=== PATIENT | female | born 1990 | race Caucasian/White ===

== ENCOUNTER → 2019-03-17 | Outpatient (CLI) | payer OTHER ==
--- NOTE | 2019-03-17 08:25 | US ---
EXAMINATION TYPE: US gallbladder DATE OF EXAM: 03/17/2019 COMPARISON: NONE CLINICAL HISTORY: K82.8 Other specified diseases of gallbladder. NPO, loose stool EXAM MEASUREMENTS: Liver Length: 14.8 cm Gallbladder Wall: 0.1 cm CBD: 0.4 cm Right Kidney: 9.7 x 4.4 x 4.3 cm Pancreas: wnl Liver: wnl Gallbladder: wnl Evidence for sonographic Haney's sign: neg CBD: wnl Right Kidney: No hydronephrosis or masses seen IMPRESSION: No sonographic evidence of cholelithiasis nor acute cholecystitis.
== END | disposition home or self-care (01) ==
LOC: RADUSWWP 06:59
PROVIDERS: ATTEND Surgery Plastic and Reconstructive Surgery
DX: R82.8 Abnormal findings on cytological and histological examination of urine (principal)
CPT/HCPCS: 76705

== ENCOUNTER 2019-04-01 08:01 | Day surgery (SDC) | payer OTHER ==
[2019-03-30 14:12] VITALS: BMI 24.5
--- NOTE | 2019-04-01 07:57 | P.GSHP ---
History of Present Illness H&P Date: 04/01/19 CHIEF COMPLAINT: GERD and change in bowel habits HISTORY OF PRESENT ILLNESS: The patient is a 29-year-old female who presents with gastroesophageal reflux disease and change in bowel habits Upper and lower endoscopy were offered for further evaluation and management. PAST MEDICAL HISTORY: Please see list. PAST SURGICAL HISTORY: Please see list. MEDICATIONS: Please see list. ALLERGIES: Please see list. SOCIAL HISTORY: No illicit drug use FAMILY HISTORY: No reports of Crohn disease or ulcerative colitis. REVIEW OF ORGAN SYSTEMS: CONSTITUTIONAL: No reports of fevers or chills. PHYSICAL EXAM: VITAL SIGNS: Stable GENERAL: Well-developed pleasant in no acute distress. HEENT: No scleral icterus. Extraocular movements grossly intact. Moist buccal mucosa. NECK: Supple without lymphadenopathy. CHEST: Unlabored respirations. Equal bilateral excursions. CARDIOVASCULAR: Regular rate and rhythm. Distal 2+ pulses. ABDOMEN: Soft, nondistended. MUSCULOSKELETAL: No clubbing, cyanosis, or edema. ASSESSMENT: 1. Gastroesophageal reflux disease 2. Change in bowel habits PLAN: 1. Recommend proceeding with an upper and lower endoscopy Past Medical History Past Medical History: GERD/Reflux Additional Past Medical History / Comment(s): intermittent bleeding with stools,freq diarrhea History of Any Multi-Drug Resistant Organisms: None Reported Additional Past Surgical History / Comment(s): upper and lower GI ([facility]) Past Anesthesia/Blood Transfusion Reactions: No Reported Reaction Smoking Status: Never smoker - Past Family History Mother Family Medical History: No Reported History Medications and Allergies Home Medications Medication Instructions Recorded Confirmed Type Dextroamphetamine/Amphetamine 25 mg PO QAM 03/30/19 03/30/19 History [Adderall Xr] Ibuprofen 600 - 800 mg PO Q8H PRN 03/30/19 03/30/19 History Medroxyprogesterone Acetate 150 mg IM ONCE 03/30/19 03/30/19 History [Depo-Provera] Omeprazole 40 mg PO DAILY 03/30/19 03/30/19 History SUMAtriptan SUCCINATE [Imitrex] 100 mg PO DAILY PRN 03/30/19 03/30/19 History Sertraline [Zoloft] 100 mg PO QAM 03/30/19 03/30/19 History Allergies Allergy/AdvReac Type Severity Reaction Status Date / Time No Known Allergies Allergy Verified 03/30/19 14:03
[~2019-04-01 08:01] MED LIST: LACTATED RINGERS 1,000 ML IV SCH; LIDOCAINE 1% 20 ML VIAL (10MG/ML) FOR IV START INTRADERMA PRN
[2019-04-01 08:25] VITALS: RESP 18; TEMP 98.2
[2019-04-01] MEDS ORDERED: PROPOFOL 10 MG/ML 20 ML VIAL IV ONE (08:49)
[2019-04-01] MEDS ORDERED: LIDOCAINE 1% INJ 10MG/ML (20 ML MDV) ONE (08:49)
--- NOTE | 2019-04-01 09:03 | P.PCN ---
Date of Procedure: 04/01/19 Description of Procedure: PREOPERATIVE DIAGNOSIS: Gastroesophageal reflux disease. POSTOPERATIVE DIAGNOSIS: Erosive esophagitis Gastroesophageal reflux disease Diaphragmatic hiatal hernia Superficial gastritis OPERATION: Esophagogastroduodenoscopy with biopsies along antrum. SURGEON: Yeni Cueto MD ANESTHESIA: MAC. INDICATIONS: The patient is a 29-year-old female who presents with a history of reflux disease. Benefits and risks of the procedure were described. Informed consent was obtained. DESCRIPTION: The patient was brought into the endoscopy suite and laid in the left lateral decubitus position. An Olympus gastroscope was passed along the posterior oropharynx down to the distal esophagus where the squamocolumnar junction was encountered at 35 cm from the incisors. The stomach was entered and no bile reflux was found. Additional findings are listed below. Biopsies with cold for ceps were obtained of the antrum. The first through third portion of the duodenum was examined and unremarkable. Retroflexion of the scope confirmed Hill grade 4 lower esophageal valve. The squamocolumnar junction demonstrated LA grade C erosive esophagitis. The stomach was desufflated. The patient tolerated the procedure well. FINDINGS: Squamocolumnar junction 35 cm from the incisors. Diaphragmatic hiatus at 36 cm. Hiatal hernia, 1 cm Hill grade 4 lower esophageal valve. LA grade C erosive esophagitis. No active duodenitis. Chronic gastritis RECOMMENDATIONS: Upper endoscopy as needed.
--- NOTE | 2019-04-01 09:17 | P.PCN ---
Date of Procedure: 04/01/19 Description of Procedure: PREOPERATIVE DIAGNOSIS: Change in bowel habits Rectal bleeding POSTOPERATIVE DIAGNOSIS: Change in bowel habits Rectal bleeding Internal hemorrhoids, grade 2 OPERATION: Colonoscopy with cold forceps biopsy, random Colonoscopy to the ileocecal valve SURGEON: Yeni Cueto MD. ANESTHESIA: MAC. INDICATIONS: The patient is a 29-year-old female who presents with rectal bleeding and change in bowel habits. Benefits and risks were described and informed consent was obtained. DESCRIPTION OF PROCEDURE: The patient had undergone Suprep. She had been brought into the operating room and laid in the left lateral decubitus position. After adequate intravenous sedation, the rectum was examined with 2% lidocaine jelly. No external hemorrhoids were encountered. The rectal tone was within normal limits. No lesions were palpated in the rectal vault. An Olympus colonoscope was advanced until the ileocecal valve and appendiceal orifice were clearly viewed. The prep was excellent with clear visualization of the mucosal folds. The scope was removed with visualization of each mucosal fold. No scattered diverticulosis was encountered. No colonic polyps were found. No evidence of focal colitis was found. Random biopsies with cold forceps were obtained for evaluation for microscopic colitis. Retroflexion of the scope demonstrated grade 2 internal hemorrhoids without active bleeding or inflammation. The colon was desufflated. The patient had tolerated the procedure well. Withdrawal time was over 6 minutes. FINDINGS: Aronchick preparation quality scale 1 (1-5) Internal hemorrhoids, grade 2 No external prolapsed hemorrhoids. No arteriovenous malformations. No adenomatous polyps. No focal colitis. RECOMMENDATIONS: Lower endoscopy as needed Plan - Discharge Summary Discharge Rx Participant: No New Discharge Prescriptions: No Action SUMAtriptan SUCCINATE [Imitrex] 100 mg PO DAILY PRN PRN Reason: migraines Medroxyprogesterone Acetate [Depo-Provera] 150 mg IM ONCE Sertraline [Zoloft] 100 mg PO QAM Omeprazole 40 mg PO DAILY Dextroamphetamine/Amphetamine [Adderall Xr] 25 mg PO QAM Ibuprofen 600 - 800 mg PO Q8H PRN PRN Reason: Pain Discharge Medication List Dextroamphetamine/Amphetamine [Adderall Xr] 25 mg PO QAM 03/30/19 [History] Ibuprofen 600 - 800 mg PO Q8H PRN 03/30/19 [History] Medroxyprogesterone Acetate [Depo-Provera] 150 mg IM ONCE 03/30/19 [History] Omeprazole 40 mg PO DAILY 03/30/19 [History] SUMAtriptan SUCCINATE [Imitrex] 100 mg PO DAILY PRN 03/30/19 [History] Sertraline [Zoloft] 100 mg PO QAM 03/30/19 [History] Follow up Appointment(s)/Referral(s): Yeni Cueto MD [STAFF PHYSICIAN] - 04/14/19 Patient Instructions/Handouts: Pneumonitis (DC), Gastroesophageal Reflux Disease (DC), Esophagitis (GEN), Colonoscopy (DC), *Surgery [facility] - (Anesthesia) Endoscopy Discharge Instructions Discharge Disposition: HOME SELF-CARE
[2019-04-01 09:39] VITALS: BP 111/78; PULSE 84
== END 2019-04-01 10:00 | disposition home or self-care (01) ==
LOC: ORWHC2ENDO 08:01
PROVIDERS: ATTEND Surgery Plastic and Reconstructive Surgery
DX: K22.10 Ulcer of esophagus without bleeding (principal); K44.9 Diaphragmatic hernia without obstruction or gangrene; K29.50 Unspecified chronic gastritis without bleeding; K21.9 Gastro-esophageal reflux disease without esophagitis; K64.1 Second degree hemorrhoids; Z87.01 Personal history of pneumonia (recurrent); Z79.3 Long term (current) use of hormonal contraceptives; Z79.899 Other long term (current) drug therapy
CPT/HCPCS: 81025; 88305; 45380; 43239; J2001; J2704